=== PATIENT | female | born 1970 | race Caucasian/White ===

== ENCOUNTER → 2024-08-12 09:27 | Outpatient (REF) | payer OTHER, SELFPAY ==
[2024-08-13 19:22] LABS: Rubella Positive
[2024-08-14 16:10] LABS: Quantiferon Mitogen minus NIL 9.97 IU/mL; Quantiferon NIL 0.03 IU/mL; Quantiferon TB Gold Plus Negative (Negative)
== END ==
LOC: OHS 09:27
PROVIDERS: ATTENDING PHYSICIAN Nurse Practitioner Family
DX: Z23 Encounter for immunization (principal)
CPT/HCPCS: 36415; 86480; 86735; 86762; 86765; 86787